=== PATIENT | male | born 1950 | race American Indian/Alaskan Native ===

== ENCOUNTER 2018-03-02 15:17 | Outpatient (CLI) | payer MEDICARE ==
--- NOTE | 2018-03-02 16:08 | XRay Report ---
X-RAY CERVICAL SPINE SERIES THREE VIEWS: 03/02/18 15:17:00 CLINICAL: Neck pain. FINDINGS: Extensive degenerative change with anterior spondylosis and very large anterior osteophytes. The disc spaces are relatively well-preserved. The largest osteophytes are at C4-5, C5-6 and C6-7. Relatively uniform loss of height in the C4 and C5 vertebral bodies and to a lesser degree the C3 and C6 vertebral bodies. The odontoid and C1 are intact. No fracture. Normal soft tissues. IMPRESSION: Extensive degenerative change with extensive spondylosis.
== END 2018-03-02 15:18 | disposition home or self-care (01) ==
LOC: SPVIMAG 15:17
DX: M47.892 Other spondylosis, cervical region (principal)
CPT/HCPCS: 72040